=== PATIENT | female | born 1970 | race American Indian/Alaskan Native ===

== ENCOUNTER 2017-01-07 00:34 | Emergency (ER) | payer OTHER ==
[2017-01-07 00:59] VITALS: BP 115/77
--- NOTE | 2017-01-08 08:31 | ED Elopement Review ---
ED Pt Elopement review - Call Back decision Pt Call Back Decision: No action required
== END 2017-01-07 04:30 | disposition left against medical advice (07) ==
LOC: ED 00:34
DX: M79.605 Pain in left leg (principal); R07.9 Chest pain, unspecified; Z53.21 Procedure and treatment not carried out due to patient leaving prior to being seen by health care provider
CPT/HCPCS: 93005; 93010